=== PATIENT | male | born 1975 | race Caucasian/White ===

== ENCOUNTER 2017-04-04 13:55 | Inpatient (IN) ==
[~2017-04-04 13:55] MED LIST: *HR* LORazepam 1 MG TABLET PO PRN; *HR* LORazepam 2 MG/ML VIAL IM PRN; Haloperidol Lactate 5 MG/ML VIAL IM PRN; Ibuprofen 400 MG TABLET PO PRN; hydrOXYzine pamoate 25 MG CAPSULE PO PRN; traZODone 50 MG TABLET PO PRN
[2017-04-04] MEDS: Lisinopril 20 MG TABLET PO SCH (15:27)
--- NOTE | 2017-04-04 17:12 | Psychiatry History & Physical ---
Date of Encounter: 04/04/17 Time of Encounter: 17:08 History of Present Illness Patient Stated Chief Complaint: suicidal ideation Medicare Admission Attestation: For traditional Medicare patients the provided hospital inpatient services are reasonable and necessary and in the case of services not specified as inpatient -only under 42 CFR 419.22 (n), that they are appropriately provided as inpatient services in accordance 42 CFR 412.3. For Critical Access Hospital the patient may reasonably be expected to be discharged or transferred to a hospital within 96 hours after admission to the Critical Access Hospital. Admitted From: Home Plans for Post Hospital Care: Home History of Present Illness: Mr. Lam is a 41 year old male who was admitted due to suicidal ideation and vague homicidal ideation. No intended victim. History of depression and anxiety. One prior admission in [place] in 2011 but no psychiatric follow-up since that time. Currently wants help due to losing mother in last year and not coping well with her passing. Finds home environment stressful because everything reminds him of his mother. Lives with girlfriend and she is supportive but ultimately he feels he may need to move out of [facility] to ever feel truly happy again. Already feels better being in the hospital and away from his living situation. Past Med Surg Social Fam HX - Past Medical History Medical history: GERD, hypertension, other - Past Psychiatric History Psychiatric history: Reports: anxiety, depression, previous psychiatric hospitalization Past psychiatric history details: prior admission in [place] in 2011 - Social History Smoking Status: Never smoker Smokeless Tobacco Status: No Alcohol use: occasionally Drug use: none Medications & Allergies Ibuprofen [Motrin] 400 mg PO Q6HR PRN 04/04/17 [History] Lisinopril [Zestril] 20 mg PO DAILY 04/04/17 [History] Omeprazole [PriLOSEC] 20 mg PO DAILY 04/04/17 [History] Allergies bee venom protein (honey bee) Allergy (Verified 04/04/17 05:36) See Comments Review of Systems Constitutional: Denies: fever, chills, weakness, weight change Eyes: Denies: eye pain, vision change Ears, Nose, Throat: Denies: ear pain, throat pain, dental pain, hearing loss, congestion Cardiovascular: Denies: chest pain, palpitations, dyspnea on exertion Respiratory: Denies: cough, dyspnea, wheezes Gastrointestinal: Denies: abdominal pain, nausea, vomiting, diarrhea, constipation Genitourinary male: Denies: urgency, dysuria, frequency, genital lesions Genitourinary female: Denies: urgency, dysuria, frequency, abnormal menses, dyspareunia Musculoskeletal: Denies: joint swelling, joint pain Integumentary: Denies: rash, lesions, pruritus Neurological: Denies: headache, weakness, numbness, memory loss Endocrine: Denies: fatigue, heat or cold intolerance Hematologic/Lymphatic: Denies: easy bruising, lymphadenopathy Allergic/Immunologic: Denies: urticaria, itchy eyes Mental Status Exam Patient orientation: Yes Person, Yes Time, Yes Place Level of alertness: Alert Patient appearance: Appropriate, Well Groomed Behavior: calm, cooperative Psychomotor activity: Normal Eye contact: Maintains Eye Contact Mood description: Depressed Affect description: congruent with mood, full range Speech pattern: Normal rate, Normal rhythm, Normal tone Speech volume: Normal Thought process: Linear, Goal Oriented Thought content: Yes Suicidal ideation Perceptual disturbances: No Auditory hallucinations, No Visual hallucinations Attention span: Capable of Focused Attention Memory description: Grossly Intact Patient reliability: Reliable Historian Intelligence estimate: Average Judgment: Limited Insight: Partial Exam - HEENT Head exam IM: Present: atraumatic Eye exam IM: Present: normal appearance ENT exam IM: Present: mucous membranes moist - Neurological Neurological exam IM: Present: alert, normal gait, oriented X3 - Respiratory Respiratory exam IM: Present: CTAB - GI/Abdominal GI/Abdominal exam IM: Present: normal bowel sounds - Extremities Extremities exam IM: Present: full ROM - Skin Skin exam IM: Present: intact Results - Vital Signs Vital signs: Temp Pulse Resp BP 97 F L 64 16 143/91 04/04/17 09:00 04/04/17 15:23 04/04/17 09:00 04/04/17 15:23 Assessment and Plan (1) Major depress dis, severe Current visit: Yes Status: Acute Plan: Admit inpatient for safety and stabilization, Close observation, Suicide Precautions per unit protocol, Encourage participation in unit milieu, Group Therapy, Monitor sleep, Monitor appetite, Secure weapons Risks, benefits, side effects, alternatives discussed w/pt: Yes Patient agreeable to treatment : Yes Plans for Post Hospital Care: Home Estimated Length of Stay (Days): 4
[2017-04-04] MEDS ORDERED: Mag Hydrox/Al Hydrox/Simeth 30 ML UDC PO PRN (21:43)
[2017-04-05 09:19] VITALS: BP 139/100
[2017-04-05] MEDS: Lisinopril 20 MG TABLET PO SCH (09:23)
--- NOTE | 2017-04-05 15:45 | Discharge Summary ---
Date of Encounter: 04/05/17 Time of Encounter: 15:43 Diagnosis - Discharge Diagnosis (1) Major depress dis, severe Status: Acute Medications - Discharge Medications Prescriptions: Sertraline [Zoloft] 50 mg PO DAILY #30 tablet Ibuprofen [Motrin] 400 mg PO Q6HR PRN 04/04/17 [History] Lisinopril [Zestril] 20 mg PO DAILY 04/04/17 [History] Omeprazole [PriLOSEC] 20 mg PO DAILY 04/04/17 [History] Sertraline [Zoloft] 50 mg PO DAILY #30 tablet 04/05/17 [Rx] Allergies bee venom protein (honey bee) Allergy (Verified 04/04/17 05:36) See Comments Provider Date of admission: 04/04/17 13:55 Primary care physician: PCP NO Discharging clinician: Nevin Shaw Assessment and Plan - Patient/Caregiver Discharge Instructions Activity: resume usual activities as tolerated Diet: low fat, low cholesterol - Follow up Plan Follow up with: Joseph Portillo [facility] [Outside] Jayne Chan MD [Partnered Physician] - 04/20/17 10:30 am (The folowing appointment is with Dr. Chan. ) Functional capacity at discharge: independent ambulation Overall status at discharge: Stable Disposition: Home, Self-Care Hospital Course Hospital course: Mr. Lam is a 41 year old male who was admitted with depression and vague HI. No intended victim. Endorsed stressors of his mother's passing and feeling reminded of her everywhere he went in his home town. Started on Zoloft. Improved quickly. [place] benefit from medication. Also felt being away from home benefitted him. Helped him put things in perspective. Social work spoke with his live-in girlfriend and she was supportive of having him return home. Did not feel he was a risk to himself or anyone else. Tad denied any suicidal or homicidal ideation, plan, or intent. Focused on getting FMLA paperwork filled out correctly but otherwise felt strong and in control. No problems on the unit. Ate and slept well. Appropriately social with his peers. - Time Spent with Patient Total time spent providing and/or coordinating discharge services: Quality - Multiple Antipsychotics Patient discharged on 2 or more antipsychotic medications: No Procedures - Procedures Procedures: Medication Management, Crisis Stabilization, Supportive Therapy, Group Therapy Mental Status Exam - Mental Status Exam Patient orientation: Yes Person, Yes Time, Yes Place Level of alertness: Alert Patient appearance: Appropriate, Well Groomed Behavior: calm, cooperative Psychomotor activity: Normal Eye contact: Maintains Eye Contact Mood description: Euthymic/stable Affect description: congruent with mood Speech pattern: Normal rate, Normal rhythm, Normal tone Speech Volume: Normal Thought process: Linear, Goal Oriented Thought Content: No Suicidal ideation, No Homicidal ideation, No Overt delusions Perceptual Disturbances: No Auditory hallucinations, No Visual hallucinations Judgment: Fair Insight: Partial
== END 2017-04-05 18:10 | disposition home or self-care (01) | DRG 754 ==
LOC: 1ANU → UNDODISIN 04-05 15:59
PROVIDERS: ADMIT Student in an Organized Health Care Education/Training Program; ATTEND Student in an Organized Health Care Education/Training Program

== ENCOUNTER 2021-10-20 02:43 | Inpatient (IN) ==
[2021-10-20 03:34] LABS: VBG HCO3 27 mEq/L (21-27); VBG PCO2 45 mmHg (41-51); VBG PH 7.39 pH Units (7.32-7.42); VBG PO2 38 mmHg (25-50)
[2021-10-20 03:49] LABS: BUN/Creatinine Ratio 18 (6-26); Blood Urea Nitrogen 14 mg/dL (6-20); Calcium 9.5 mg/dL (8.6-10.3); Carbon Dioxide 28 mEq/L (23-29); Chloride 93 mEq/L (98-107); Glucose 328 mg/dL (70-105); Osmolality,Calculated 285 (280-300); Potassium 3.6 mEq/L (3.5-5.1); Sodium 131 mEq/L (136-145); eGFR For African Americans > 60 (> 60); eGFR For Non-African Americans > 60 (> 60)
[2021-10-20] MEDS ORDERED: Insulin LISPRO 300 UNITS/3 ML VIAL SUBQ ONE ×2 (03:57→12:45)
[2021-10-20] MEDS ORDERED: 0.9 % Sodium Chloride 500 ML IV ONE (04:01)
[2021-10-20 04:04] LABS: Influenza A PCR Negative (Negative); Influenza B PCR Negative (Negative); Resp. Syncytial Virus PCR Negative (Negative)
[2021-10-20 04:07] LABS: SARS-CoV-2 by PCR (In House) Negative (Negative)
[2021-10-20] MEDS ORDERED: *HR* Metformin 500 MG TABLET PO ONE (05:08)
[2021-10-20 08:10] LABS: Estimated Average Glucose 349 mg/dl; Hemoglobin A1C 13.8 %
[2021-10-20] MEDS ORDERED: Insulin Regular, Human 100 UNIT/ML SUBQ ONE (12:09)
[2021-10-20] MEDS ORDERED: haloperidoL 5 MG TABLET PO PRN (14:52)
[2021-10-20] MEDS ORDERED: *HR* LORazepam 2 MG/ML VIAL IM PRN (14:52)
[2021-10-20] MEDS ORDERED: Acetaminophen 325 MG TABLET PO PRN (14:52)
[2021-10-20] MEDS ORDERED: Haloperidol Lactate 5 MG/ML VIAL IM PRN (14:52)
[2021-10-20] MEDS ORDERED: MOM Conc 10 ML UD.LIQ PO PRN (14:52)
[2021-10-20] MEDS ORDERED: Mag Hydrox/Al Hydrox/Simeth 30 ML UDC PO PRN (14:52)
[2021-10-20] MEDS ORDERED: *HR* LORazepam 1 MG TABLET PO PRN (14:52)
[2021-10-20] MEDS ORDERED: Dextrose Gel 15 GM/37.5 ML TUBE PO PRN ×2 (14:56→15:02)
[2021-10-20] MEDS ORDERED: Insulin LISPRO 300 UNITS/3 ML VIAL SUBQ SCH (16:30)
[2021-10-20] MEDS: hydrOXYzine pamoate 25 MG CAPSULE PO PRN (16:49)
[2021-10-20] MEDS: *HR* Metformin 500 MG TABLET PO SCH (16:50)
[2021-10-20] MEDS: traZODone 50 MG TABLET PO PRN (21:21)
[2021-10-20] MEDS: Insulin LISPRO 300 UNITS/3 ML VIAL SUBQ SCH (21:33)
[2021-10-21] MEDS: Insulin LISPRO 300 UNITS/3 ML VIAL SUBQ SCH ×4 (08:20→20:37)
[2021-10-21] MEDS: *HR* Metformin 500 MG TABLET PO SCH ×2 (08:21→16:10)
[2021-10-21] MEDS: ARIPiprazole 5 MG TABLET PO SCH (09:57)
[2021-10-21] MEDS: lisinopriL 20 MG TABLET PO SCH (09:57)
[2021-10-21] MEDS: hydrOXYzine pamoate 25 MG CAPSULE PO PRN (20:41)
[2021-10-21] MEDS: traZODone 50 MG TABLET PO PRN (20:42)
[2021-10-22] MEDS: Insulin LISPRO 300 UNITS/3 ML VIAL SUBQ SCH ×3 (08:12→16:27)
[2021-10-22] MEDS: *HR* Metformin 500 MG TABLET PO SCH ×2 (08:14→16:37)
[2021-10-22] MEDS: lisinopriL 20 MG TABLET PO SCH (08:14)
[2021-10-22] MEDS: ARIPiprazole 5 MG TABLET PO SCH (08:14)
[2021-10-22 08:38] VITALS: BP 137/94; PULSE 85; TEMP 97.4; O2SAT 96
== END 2021-10-22 18:45 | disposition home or self-care (01) | DRG 751 ==
LOC: EMEROOARM 02:43 → 1ANU 13:57
PROVIDERS: ADMIT Psychiatry & Neurology Psychiatry; ATTEND Psychiatry & Neurology Psychiatry